=== PATIENT | female | born 1970 | race Caucasian/White ===

== ENCOUNTER 2019-11-27 08:13 | Emergency (ER) | payer OTHER, SELFPAY ==
[2019-11-27 08:19] VITALS: BP 138/89; PULSE 99; RESP 18; TEMP 36.8; O2SAT 98; BMI 25.4
[2019-11-27 08:27] VITALS: RESP 16
--- NOTE | 2019-11-27 08:29 | XR_ITS ---
WS: [id number] Right great toe, 3 views, 11/27/2019 Clinical Data: trauma big toe Comparison: None. Findings: There is a fracture of the proximal medial aspect of the base of the right first distal phalanx. The right first proximal phalanx is intact. The MP and IP joints are normal. XR/XR toe RT min 2V [id number] Impression: Fracture of proximal medial base of the right first distal phalanx of the toe.
--- NOTE | 2019-11-27 08:30 | W.ED.EXTPRO ---
HPI - Extremity Problem General: Chief complaint: Extremity Injury, Lower Stated complaint: right foot injury Time Seen by Provider: 11/27/19 08:19 History of Present Illness: HPI Narrative: Patient was at work this morning and turning over an 8 foot table she felt that was falling faster than she wanted to has been making lives noise and she took her foot to catch the table and table landed on her big toe and now she has swelling and tenderness to that toe on the right foot MD Complaint: joint swelling Onset (ago): minute(s) Pain Consistency: constant Location: right and toe (Big toe) Severity scale (1-10): 4 Quality: aching Radiation: none Associated symptoms: Deny chest pain, fever(s) or rash Review of Systems Const: Denies: fever(s), chills or body aches Eyes: Denies: change in vision or blurry vision ENMT: Denies: throat pain or nasal congestion Card: Denies: chest pain or dyspnea on exertion Resp: Denies: dyspnea, productive cough or non-productive cough GI: Denies: abdominal pain, nausea or vomiting Musc: Reports: extremity pain and joint pain Skin/Breast: Denies: rash Neuro: Denies: headache(s) Psych: Denies: anxiety or depression Alvin/Lymph: Denies: easy bruising Physical Exam Const: COMMON NORMALS: no acute distress, average body habitus and patient oriented x3 HENMT: COMMON NORMALS: normocephalic HEAD & SCALP: normal to inspection and normocephalic FACE & SINUS: normal facial exam Eye: COMMON NORMALS: conjunctivae normal GENERAL EYE: appearance normal, both eyes and all related structures CONJUNCTIVA: Yes conjunctivae normal Neck/C-Spine: COMMON NORMALS: no JVD Chest: COMMONS NORMALS: normal inspection of the chest Resp: COMMON NORMALS: normal respiratory effort and clear to auscultation bilaterally AUSCULTATION: clear to auscultation bilaterally Cardio: COMMON NORMALS: no JVD, regular rate and regular rhythm RATE: regular rate RHYTHM: regular rhythm GI: COMMON NORMALS: Normal to inspection, nondistended, normoactive bowel sounds present Extremity: COMMON NORMALS: full ROM RIGHT LOWER EXTREMITY: Yes foot & digits (Big toe is bruised swollen and tender with range of motion) Neuro: COMMON NORMALS: patient oriented x3 Course Vital Signs: Vital signs: Vital Signs Temperature 98.3 F 11/27/19 08:19 Pulse Rate 99 11/27/19 08:19 Respiratory Rate 16 11/27/19 08:27 Blood Pressure 138/89 11/27/19 08:19 Pulse Oximetry 98 11/27/19 08:19 Coding Level of Care Code ED National Sales Executive for Zaida Lin
[2019-11-27 09:22] VITALS: PULSE 86; RESP 15; O2SAT 94
== END 2019-11-27 09:23 | disposition home or self-care (01) ==
PROVIDERS: Emergency Provider Nurse Practitioner Family; PCP Electrodiagnostic Medicine
DX: S99.921A Unspecified injury of right foot, initial encounter (principal); W20.8XXA Other cause of strike by thrown, projected or falling object, initial encounter
CPT/HCPCS: 12345; 29515; 73660; 99281; 99283

== ENCOUNTER 2020-05-09 10:09 | Outpatient (CLI) | payer OTHER, SELFPAY ==
--- NOTE | 2020-05-09 10:17 | XRR_ITS ---
PROCEDURE INFORMATION: Exam: XR Right Shoulder Exam date and time: 05/09/2020 10:42 AM Age: 49 years old Clinical indication: Pain; Shoulder; Right; Additional info: Chronic R shoulder pain/chronic neck pain/osteoarthritis TECHNIQUE: Imaging protocol: XR Right shoulder. Views: 2 or more views. COMPARISON: No relevant prior studies available. FINDINGS: Bones/joints: Osteopenia. No acute bony injury or malalignment. No significant joint space narrowing. Soft tissues: Unremarkable soft tissues. XR/XR shoulder RT min 2V* [id number] IMPRESSION: No acute osseous pathology.
--- NOTE | 2020-05-09 10:17 | XRR_ITS ---
PROCEDURE INFORMATION: Exam: XR Cervical Spine, 2 or 3 Views Exam date and time: 05/09/2020 10:56 AM Age: 49 years old Clinical indication: Neck pain; Additional info: Chronic neck pain/osteoarthritis/chronic R shoulder pain TECHNIQUE: Imaging protocol: XR of the cervical spine, 2 or 3 views. COMPARISON: CT neck w con* [id number] 06/14/2017 8:29 AM FINDINGS: Bones/joints: Partial obscuration of the odontoid. No acute osseous pathology in the visualized cervical spine. Anatomic alignment. No significant disc space narrowing. Soft tissues: Unremarkable. XR/XR cervical spine 3V* [id number] IMPRESSION: No acute osseous pathology in the visualized cervical spine.
== END 2020-05-09 10:10 | disposition home or self-care (01) ==
LOC: RAD 10:13
PROVIDERS: PCP Electrodiagnostic Medicine; Visit Provider Electrodiagnostic Medicine
DX: M54.2 Cervicalgia (principal); M25.511 Pain in right shoulder; M54.12 Radiculopathy, cervical region; M25.50 Pain in unspecified joint; M19.90 Unspecified osteoarthritis, unspecified site
CPT/HCPCS: 72040; 73030

== ENCOUNTER 2020-05-24 15:27 | Outpatient (CLI) | payer OTHER, SELFPAY ==
--- NOTE | 2020-05-24 15:38 | MR_ITS ---
WS: [id number] MRI RIGHT SHOULDER NONCONTRAST TECHNIQUE: Sagittal T2, coronal T1, T2 and proton density imaging. Axial gradient PDE imaging. CLINICAL INFORMATION: RIGHT ROTATOR CUFF SYNDROME/CHRONIC RIGHT SHOULDER PAIN COMPARISON: None. FINDINGS: Mild degenerative arthritis AC joint. Mild downsloping acromion. Slight subacromial spurring. Normal supraspinatus and infraspinatus. Normal teres minor. Normal subscapularis. Normal biceps tendon in th e bicipital groove. Normal intra-articular biceps tendon. Normal glenoid labrum. Normal biceps labral anchor. Normal bone marrow signal. MR/MR shoulder RT wo con* [id number] IMPRESSION: 1. Mild degenerative arthritis AC joint with mild subacromial spurring. 2. Rotator cuff is normal. No full-thickness rotator cuff tears. 3. Normal biceps tendon in the bicipital groove. 4. No other significant findings.
== END 2020-05-24 15:28 | disposition home or self-care (01) ==
PROVIDERS: PCP Electrodiagnostic Medicine; Visit Provider Electrodiagnostic Medicine
DX: M75.101 Unspecified rotator cuff tear or rupture of right shoulder, not specified as traumatic (principal); M25.511 Pain in right shoulder; M19.011 Primary osteoarthritis, right shoulder
CPT/HCPCS: 73221

== ENCOUNTER 2022-03-10 14:46 | Outpatient (CLI) | payer OTHER, SELFPAY ==
--- NOTE | 2022-03-10 14:54 | XR_ITS ---
WS: [id number] DEXA (DUAL ENERGY X-RAY ABSORPTIOMETRY) Bone mineral density was performed using a [employer] machine. HISTORY: POSTMENOPAUSAL COMPARISON: None available. Lumbar spine BMD (L1-L4): 0.822 g/cm2 T score: -3.0 Z score: -2.2 Total hip BMD: Left: 0.674 g/cm2. T score: -2.6 Z score: -1.9 Right: 0.692 g/cm2. T score: -2.5 Z score: -1.8 10 year probability of a major osteoporotic fracture is 9.7%. XR/XR DEXA axial skeleton* [id number] IMPRESSION: OSTEOPOROSIS based upon the WHO classification for females.
== END 2022-03-10 14:47 | disposition home or self-care (01) ==
LOC: RAD 14:48
PROVIDERS: PCP Electrodiagnostic Medicine; Visit Provider Electrodiagnostic Medicine
DX: Z78.0 Asymptomatic menopausal state (principal); M81.0 Age-related osteoporosis without current pathological fracture
CPT/HCPCS: 77080

== ENCOUNTER 2022-04-10 19:30 | Emergency (ER) | payer OTHER, SELFPAY ==
[2022-04-10 19:35] VITALS: BP 127/76; PULSE 89; RESP 16; TEMP 36.5; O2SAT 97
--- NOTE | 2022-04-10 20:00 | W.ED.GENADLT ---
HPI - General Adult General: Chief complaint: Headache Stated complaint: Headache, N/V Time Seen by Provider: 04/10/22 19:58 History of Present Illness: Patient is a 51-year-old female who recently had COVID 11 days ago presents to the emergency room with 2 days of nausea and vomiting, headache and neck pain. Patient tells me 2 days ago she was at work when she suddenly experienced 1 episode of vomiting associated with mild chest blockage.' Denies have any chest pressure at this time. Patient reports that her esophagus filled like it was blocked. Since then, patient has had additional vomiting and and left-sided neck pain, headache and photophobia for the last 2 days. Patient said that her current headache feels different from her previous headache. Patient reports that the headache is gradual onset which began over the course of 30 minutes. Patient's usual headache is frontal and bilateral but reports now is left-sided. Patient has no family history of aneurysm. Patient denies any focal weakness in the arms or legs with facial droop, diplopia, expressive/receptive aphasia, gait instability or balance issues. In addition, patient denies any exertional chest pain, chest pressure, palpitation, abdominal pain, melena/hematochezia or complaints Onset:2 days ago Duration:2 days Location:home Severity:moderate Associated symptoms: Reports headache(s), nausea and vomiting; Deny chest pain, dyspnea, rash or palpitations Review of Systems Const: Denies: fever(s) or chills Eyes: Denies: change in vision ENMT: Denies: mouth pain Card: Denies: chest pain or palpitations Resp: Denies: dyspnea or non-productive cough GI: Reports: nausea and vomiting; Denies: abdominal pain or diarrhea : Denies: dysuria Musc: Denies: extremity pain Skin/Breast: Denies: rash or new lesions Neuro: Reports: headache(s); Denies: weakness in extremities Psych: Reports: other (Normal mood) Alvin/Lymph: Denies: easy bruising PFS ED PFSH: Medical History COVID Hypothyroidism Migraine Social History Smoking and tobacco status: never smoked Alcohol intake: never Substance/Drug Use: never Physical Exam Const: COMMON NORMALS: alert HENMT: COMMON NORMALS: atraumatic HEAD & SCALP: atraumatic MOUTH: moist mucous membranes not abnormal Eye: COMMON NORMALS: EOMs intact bilaterally and conjunctivae normal CONJUNCTIVA: Yes conjunctivae normal Neck/C-Spine: COMMON NORMALS: full ROM and supple OTHER: +no meningismus or nuchal rigidity Resp: COMMON NORMALS: normal respiratory effort and clear to auscultation bilaterally AUSCULTATION: clear to auscultation bilaterally Cardio: COMMON NORMALS: regular rate RATE: regular rate GI: COMMON NORMALS: Soft to palpation and non-tender PALPATION: Yes Soft to palpation OTHER: No focal TTP. NO guarding rebound, guarding, rigidity. No CVA tenderness to percussion. Neg Hanson/Neg McBurney's point tenderness, no suprabupic tenderness to palpation. Extremity: COMMON NORMALS: full ROM Neuro: SENSORIUM/ORIENTATION: Yes alert MOTOR EXAM: No Abnormal motor strength present and Other motor observations present (no focal motor deficits) OTHER: Mental status? Awake, alert, and oriented to self, year, month, location, and situation.? Following simple axial and appendicular commands.? Has appropriate fund of knowledge, comprehension, and insight.? Able to recall and understands pertinent aspects of medical history and current treatment status.? ? Language? Speech is fluent without word-finding difficulties.? Intact naming, expression, senior receptionist, and repetition.? ? Cranial nerves? 2,3,4,6: PERRL, EOMI with no nystagmus. 5: Intact sensation to light touch, symmetric? 7: Smile symmetrical, no facial droop.? 8: Hearing grossly intact.? 9,10: Normal palate movement.? 11: Normal strength in trapezius bilaterally 12: Tongue protrudes midline.? ? Motor examination? Normal bulk & tone. Strength as follows (R/L): Delts (5/5), Biceps (5/5), Triceps (5/5), Wrist ext (5/5), hip flexors (5/5), plantarflexors (5/5), dorsiflexors (5/5). ? Sensation? Light Touch: Grossly intact and equal in upper and lower extremities bilaterally? Romberg: Negative.? Distal joint position sense intact ? Coordination? Xcypon-gs-wlyi-finger movements intact without dysmetria or past-pointing.? Rapid fingertaps: preserved amplitude without decriment.? No tremor, myoclonus or truncal ataxia.? ? Gait/stance? Steady, normal narrow base gait with appropriate arm swing and turning.? Tandem gait without hesitation or loss of balance. Psych: COMMON NORMALS: speech normal SPEECH: Yes normal speech MOOD & AFFECT: Yes euthymic mood Course Vital Signs: Vital signs: Vital Signs Temperature 97.7 F 04/10/22 19:35 Pulse Rate 63 04/10/22 22:55 Respiratory Rate 16 04/10/22 22:55 Blood Pressure 107/71 04/10/22 22:55 Pulse Oximetry 96 04/10/22 22:55 Oxygen Delivery Me thod 04/10/22 22:55 MDM - General Adult Medical Decision Making Patient is a 51-year-old female who recently had COVID 11 days ago presents to the emergency room with 2 days of nausea and vomiting, headache and neck pain. Patient is hemodynamically stable. Neurological exam is intact. Patient has no meningismus sign. Rest of exam is unremarkable. Patient's lab work-up is unremarkable. Patient received Reglan, Benadryl, IVF, magnesium and Tylenol with improvement in symptoms. CT head is negative for any acute finding. I doubt that this is subarachnoid bleed given the fact the patient has not had worse headache of his life, headaches associate with other symptoms, has no family history of aneurysm. Patient reports that her headache significantly improved after medication. Patient is able to tolerate p.o. without any difficulty. Patient will need complaints of neck pain. Given concerns for possible chest pain with story of esophageal blockage with her picture associated nausea and vomiting, I ordered troponin and EKG. Troponin wnl. EKG is nonischemic. Her XR chest appears to be clear. At this time, do not suspect ACS or unstable angina. Rx: Magnesium oxide, Tylenol, Reglan as needed for headache Disposition: Discharge. Patient counseled regarding diagnostic impression, treatment plan. Patient given ED strict return precautions to return for continuation, worsening, or development of new symptoms. Instructed to f/u w/ PCP regarding symptoms today. Patient verbalized understanding. Lab Data : 04/10/22 21:08 04/10/22 21:[address] 04/10/22 20:41 IMPRESSION: No acute intracranial abnormality. Chest X-Ray 04/10/22 21:27 IMPRESSION: No acute findings. Laboratory Results WBC 4.8 10^3/uL (4.0-10.0) 04/10/22 21:08 RBC 4.25 10^6/uL (4.1-5.3) 04/10/22 21:08 Hgb 13.1 g/dL (11.5-15.3) 04/10/22 21:08 Hct 41.1 % (37.0-47.0) 04/10/22 21:08 MCV 96.7 fl (81-99) 04/10/22 21:08 MCH 30.8 pg (28.0-34.0) 04/10/22 21:08 MCHC 31.9 g/dL (30.0-36.0) 04/10/22 21:08 RDW 13.4 % (12.1-15.1) 04/10/22 21:08 Plt Count 308 10^3/cmm (130-400) 04/10/22 21:08 MPV 9.6 fL (7.4-10.4) 04/10/22 21:08 Neut % (Auto) 58.1 % 04/10/22 21:08 Lymph % (Auto) 25.6 % 04/10/22 21:08 [place] % (Auto) 11.5 % 04/10/22 21:08 Eos % (Auto) 4.0 % 04/10/22 21:08 Baso % (Auto) 0.6 % 04/10/22 21:08 Neut # (Auto) 2.79 10^3/uL (1.8-7.7) 04/10/22 21:08 Lymph # (Auto) 1.2 10^3/uL (0.8-4.8) 04/10/22 21:08 [place] # (Auto) 0.6 10^3/uL (0.2-0.9) 04/10/22 21:08 Eos # (Auto) 0.2 10^3/uL (0.0-0.8) 04/10/22 21:08 Baso # (Auto) 0.0 10^3/uL (0.0-0.1) 04/10/22 21:08 Nucleated RBC % (auto) 0 % 04/10/22 21:08 Nucleated RBCs # 0.0 /100WBC 04/10/22 21:08 Sodium 139 mmol/L (136-145) 04/10/22 21:08 Potassium 4.0 mmol/L (3.5-5.1) 04/10/22 21:08 Chloride 100 mmol/L (98-107) 04/10/22 21:08 Carbon Dioxide 30 mmol/L (22-29) H 04/10/22 21:08 Anion Gap 13.0 (5-19) 04/10/22 21:08 BUN 12 mg/dL (6-20) 04/10/22 21:08 Creatinine 0.8 mg/dL (0.5-0.9) 04/10/22 21:08 GFR Calculation 75.3 mL/min (90-130) L 04/10/22 21:08 Glucose 96 mg/dL (65-115) 04/10/22 21:08 Calculated Osmolality 288 mOsm/kg (285-295) 04/10/22 21:08 Calcium 9.6 mg/dL (8.5-10.5) 04/10/22 21:08 Troponin T Baseline 6 ng/L (0-10) 04/10/22 21:08 Imaging Data Other Imaging: Radiologist's impression: [address] [address] XRay Report Signed Patient: Ria Will Unit #: [id number] : 1970 Age/Sex: 51 / F ADM Date: 04/10/22 Loc: ER Room/Bed: Attending Dr: Ordering Provider/Ordering MD: Frandy Krishna MD Date of Service: 04/10/22 Procedure(s): XR chest 1V portable [id number] Accession Number(s): [id number] Report Number: [id number] PROCEDURE INFORMATION: Exam: XR Chest Exam date and time: 04/10/2022 9:39 PM Age: 51 years old Clinical indication: Pain; Chest pressure; Patient HX: C/O chest discomfort and SOB. Covid + almost two weeks ago. TECHNIQUE: Imaging protocol: Radiologic exam of the chest. Views: 1 view. COMPARISON: CR XR thoracic spine 3V* [id number] 12/30/2021 9:48 AM FINDINGS: Lungs: Unremarkable. No consolidation. Pleural spaces: Unremarkable. No pleural effusion. No pneumothorax. Heart/Mediastinum: Unremarkable. No cardiomegaly. Bones/joints: Unremarkable. XR/XR chest 1V portable [id number] IMPRESSION: No acute findings. ? Dictated By: Abner Carrillo DO Signed By: Abner Carrillo DO Signed Date/Time: 04/10/222150 DD/ [address] [address] [address] Scan Report Signed Patient: Ria Will Unit #: [id number] : 1970 Age/Sex: 51 / F ADM Date: 04/10/22 Loc: ER Room/Bed: Attending Dr: Ordering Provider/Ordering MD: Frandy Krishna MD Date of Service: 04/10/22 Procedure(s): CT head wo con* [id number] Accession Number(s): [id number] Report Number: [id number] PROCEDURE INFORMATION: Exam: CT Head Without Contrast Exam date and time: 04/10/2022 9:31 PM Age: 51 years old Clinical indication: Pain; Headache; Patient HX: SELF with n/v. History of migraines; Additional info: Different headache TECHNIQUE: Imaging protocol: Computed tomography of the head without contrast. Radiation optimization: All CT scans at this facility use at least one of these dose optimization techniques: automated exposure control; mA and/or kV adjustment per patient size (includes targeted exams where dose is matched to clinical indication); or iterative reconstruction. COMPARISON: CT neck w con* [id number] 06/14/2017 8:29 AM RADIATION DOSE METRICS: Total DLP (mGy-cm): 1061.58 FINDINGS: Brain: Normal. No hemorrhage. Unremarkable white matter. No mass effect. Cerebral ventricles: No ventriculomegaly. Paranasal sinuses: Visualized sinuses are unremarkable. No fluid levels. Mastoid air cells: Visualized mastoid air cells are well aerated. Bones/joints: Unremarkable. No acute fracture. Soft tissues: Unremarkable. CT/CT head wo con* [id number] IMPRESSION: No acute intracranial abnormality. ? Dictated By: Abner Carrillo DO Signed By: Abner Carrillo DO Signed Date/Time: 04/10/222145 DD/ 30 Discharge Plan Discharge Patient Disposition: Home Clinical Impression: Headache, Nausea & vomiting Condition: Stable Prescriptions: New acetaminophen 500 mg tablet 500 mg PO Q6H PRN (Reason: pain) 5 Days Qty: 20 0RF Reglan 5 mg tablet 5 mg PO BID PRN (Reason: nausea and vomiting) 5 Days Qty: 10 0RF magnesium oxide 400 mg magnesium capsule 400 mg PO DAILY PRN (Reason: headache) 10 Days Qty: 10 0RF No Action venlafaxine [Effexor XR] 75 mg capsule,extended release 24hr 75 mg PO DAILY levothyroxine 25 mcg capsule 25 mcg PO DAILY naproxen 500 mg tablet 500 mg PO BID PRN (Reason: headache) 5 Days Qty: 10 0RF Rx Instructions: emergency use only if migraine doesnot abort in 24 hours prednisone 20 mg tablet 20 mg PO DAILY 5 Days Qty: 5 0RF Rx Instructions: emergency use only if migraine doesnot abort in 24 hours Discharge Orders: Discharge ED (Routine); Ordered 04/10/22 Ordered By: Frandy Krishna Referrals: Logan Liz DO [Primary Care Provider] - Discharge Diet: Advance as tolerated Discharge Activity: Increase activity as tolerated Patient Instructions: Acute Headache (ED) Activity Restrictions/Additional Instructions: Please come back to the emergency room you have any fever chills, worsening headache, focal weakness, nausea/vomiting, inability to perform daily activity, or any new concerning complaints. Coding Level of Care Code ED Digester Cook for Chg Fwd Exam Comprehensive
--- NOTE | 2022-04-10 20:41 | CTR_ITS ---
PROCEDURE INFORMATION: Exam: CT Head Without Contrast Exam date and time: 04/10/2022 9:31 PM Age: 51 years old Clinical indication: Pain; Headache; Patient HX: SELF with n/v. History of migraines; Additional info: Different headache TECHNIQUE: Imaging protocol: Computed tomography of the head without contrast. Radiation optimization: All CT scans at this facility use at least one of these dose optimization techniques: automated exposure control; mA and/or kV adjustment per patient size (includes targeted exams where dose is matched to clinical indication); or iterative reconstruction. COMPARISON: CT neck w con* [id number] 06/14/2017 8:29 AM RADIATION DOSE METRICS: Total DLP (mGy-cm): 1061.58 FINDINGS: Brain: Normal. No hemorrhage. Unremarkable white matter. No mass effect. Cerebral ventricles: No ventriculomegaly. Paranasal sinuses: Visualized sinuses are unremarkable. No fluid levels. Mastoid air cells: Visualized mastoid air cells are well aerated. Bones/joints: Unremarkable. No acute fracture. Soft tissues: Unremarkable. CT/CT head wo con* [id number] IMPRESSION: No acute intracranial abnormality.
[2022-04-10] MEDS: acetaminophen 500 mg Tablet PO (21:15)
[2022-04-10] MEDS: metoclopramide 5 mg/mL SDV 2 mL 10 MG IVP (21:16)
[2022-04-10] MEDS: diphenhydrAMINE 50 mg/mL SDV 1mL IVP (21:17)
[2022-04-10 21:22] LABS: Basophils % 0.6 %; Eosinophils # 0.2 10^3/uL (0.0-0.8); Hematocrit 41.1 % (37.0-47.0); Hemoglobin 13.1 g/dL (11.5-15.3); Lymphocytes # 1.2 10^3/uL (0.8-4.8); Lymphocytes % 25.6 %; Mean Corpuscular HGB Conc 31.9 g/dL (30.0-36.0); Mean Corpuscular Hemoglobin 30.8 pg (28.0-34.0); Mean Corpuscular Volume 96.7 fl (81-99); Mean Platelet Volume 9.6 fL (7.4-10.4); Monocytes # 0.6 10^3/uL (0.2-0.9); Monocytes % 11.5 %; Neutrophils # 2.79 10^3/uL (1.8-7.7); Neutrophils % 58.1 %; Nucleated Red Blood Cells % 0 %; Platelet Count 308 10^3/cmm (130-400); Red Blood Count 4.25 10^6/uL (4.1-5.3); Red Cell Distribution Width 13.4 % (12.1-15.1); White Blood Count 4.8 10^3/uL (4.0-10.0)
--- NOTE | 2022-04-10 21:27 | XRR_ITS ---
PROCEDURE INFORMATION: Exam: XR Chest Exam date and time: 04/10/2022 9:39 PM Age: 51 years old Clinical indication: Pain; Chest pressure; Patient HX: C/O chest discomfort and SOB. Covid + almost two weeks ago. TECHNIQUE: Imaging protocol: Radiologic exam of the chest. Views: 1 view. COMPARISON: CR XR thoracic spine 3V* [id number] 12/30/2021 9:48 AM FINDINGS: Lungs: Unremarkable. No consolidation. Pleural spaces: Unremarkable. No pleural effusion. No pneumothorax. Heart/Mediastinum: Unremarkable. No cardiomegaly. Bones/joints: Unremarkable. XR/XR chest 1V portable [id number] IMPRESSION: No acute findings.
[2022-04-10 21:43] LABS: Blood Urea Nitrogen 12 mg/dL (6-20); Calcium 9.6 mg/dL (8.5-10.5); Carbon Dioxide 30 mmol/L (22-29); Chloride 100 mmol/L (98-107); Glomerular Filtration Rate 75.3 mL/min (90-130); Glucose 96 mg/dL (65-115); Osmolality Calculated 288 mOsm/kg (285-295); Sodium 139 mmol/L (136-145)
[2022-04-10 21:48] VITALS: BP 132/70; PULSE 66; RESP 14; O2SAT 95
[2022-04-10] MEDS: magnesium sulfate premix 2 GM/50 ML PIGGYBACK IV (21:49)
[2022-04-10 21:56] LABS: Troponin(5th) Baseline 6 ng/L (0-10)
--- NOTE | 2022-04-10 22:00 | ECG_ITS ---
[facility] Test Date: 2022-04-10 Pat Name: Ria Will Department: Room: Gender: Female Section Gang: : 1970 Requested By: Frandy Krishna Order Number: [id number] Sandra MD: Jag Sanchez M.D. Measurements Intervals [place] Rate: 70 P: 59 [place]: 175 QRS: 26 QRSD: 78 T: 70 QT: 383 QTc: 415 Interpretive Statements SINUS RHYTHM No previous ECG available for comparison Electronically Signed On 04-12-2022 22:04:09 CDT by Jag Sanchez M.D. [email or web address]
[2022-04-10 22:55] VITALS: BP 107/71; PULSE 63; RESP 16; O2SAT 96
[2022-04-10 23:52] VITALS: BP 141/77; PULSE 73; RESP 16; O2SAT 95
== END 2022-04-10 23:54 | disposition home or self-care (01) ==
PROVIDERS: Emergency Provider Emergency Medicine; PCP Electrodiagnostic Medicine
DX: R51.9 Headache, unspecified (principal); R11.2 Nausea with vomiting, unspecified; E03.9 Hypothyroidism, unspecified
CPT/HCPCS: 36415; 70450; 71045; 80048; 84484; 85025; 93005; 96365; 96375; 99285; J1200; J2765; J3475

== ENCOUNTER 2022-11-16 12:57 | Emergency (ER) | payer OTHER, SELFPAY ==
[2022-11-16 13:29] VITALS: BP 108/73; PULSE 88; RESP 16; TEMP 36.6; O2SAT 99; BMI 23.8
--- NOTE | 2022-11-16 13:45 | W.ED.FALL ---
HPI - Fall General: Chief Complaint: Fall Stated Complaint: broken nose from fall Time Seen by Provider: 11/16/22 13:34 Source: patient Mode of arrival: ambulatory Limitations: no limitations History of Present Illness: Patient is a 51-year-old female who presents to ED today for evaluation of nasal trauma. Patient states just prior to arrival she was walking outside when she believes her ankle rolled causing her to fall directly onto her face. She believes her nose is broken. She does complain of a headache. No neck or back pain. She denies any other injury sustained during the fall. MD complaint: fall Onset (ago): hour(s) Fall from: standing Fall witnessed: yes, by family Place fall occurred: work Loss of consciousness: None Prolonged down time: no Symptoms prior to fall: none Context: tripped/slipped Location of injury: face Associated symptoms-after fall: Reports no associated symptoms and headache(s); Denies chest pain, confusion, difficulty walking, lightheadedness or neck pain Review of Systems Eyes: Denies: change in vision, blurry vision, eye discomfort, floaters or seeing flashes ENMT: Reports: sinus pain (nose); Denies: throat pain, odynophagia, dental pain, ear discharge or nasal discharge Card: Denies: chest pain, palpitations or lightheadedness Resp: Denies: dyspnea GI: Denies: nausea or vomiting Musc: Denies: neck pain, back pain, extremity pain or joint pain Neuro: Reports: headache(s); Denies: numbness in extremities, weakness in extremities, sensory changes, lack of coordination, difficulty walking, frequent falls, dizziness, confusion or behavioral changes [facility] ED PFSH: Medical History COVID Hypothyroidism Migraine Psychiatric care Social History Smoking and tobacco status: never smoked Alcohol intake: never Substance/Drug Use: never Physical Exam Const: COMMON NORMALS: no acute distress, average body habitus, patient oriented x3, no limitations, healthy appearing, alert and well nourished GENERAL APPEARANCE: cooperative ORIENTATION/CONSCIOUSNESS: Yes awake, Yes oriented to person, Yes oriented to place and Yes oriented to time HENMT: COMMON NORMALS: normocephalic, atraumatic, external ears normal, EAC's normal and TM's normal bilaterally HEAD & SCALP: normal to inspection, normocephalic and atraumatic; no Simpson's sign, no hematoma and no raccoon eyes FACE & SINUS: edema (localized to nose); no sinus tenderness and no laceration NOSE: Normal septum present and Other nasal findings present (swelling/tenderness along nose); no Epistaxis present EXTERNAL EAR: Yes external ears normal EXTERNAL AUDITORY CANAL: EAC's normal TYMPANIC MEMBRANE: TM's normal bilaterally MOUTH: other (no intraoral injuries noted) Eye: COMMON NORMALS: Equal, round and reactive pupils present and EOMs intact bilaterally GENERAL EYE: appearance normal, both eyes and all related structures and normal light reflex PUPIL: Yes Equal, round and reactive pupils present DIRECT OPHTHALMOSCOPY: Yes normal light reflex Neck/C-Spine: COMMON NORMALS: full ROM GENERAL: Yes normal visual inspection CERVICAL SPINE: Yes cervical ROM normal, No pain with cervical ROM, No Cervical spine tenderness, No step off deformity and No Paracervical muscle tenderness Chest: COMMONS NORMALS: normal inspection of the chest and normal palpation of entire chest wall Resp: COMMON NORMALS: normal respiratory effort and clear to auscultation bilaterally AUSCULTATION: clear to auscultation bilaterally Cardio: COMMON NORMALS: regular rate and regular rhythm RATE: regular rate RHYTHM: regular rhythm Back/Pelvis: COMMON NORMALS: thoracic and lumbar spine normal to inspection, no thoracic nor lumbar tenderness and thoraco-lumbar ROM normal Extremity: COMMON NORMALS: normal to inspection and full ROM GENERAL: Yes normal exam except as noted Neuro: BELLO COMA SCALE: document GCS findings Bello coma scale eye opening: Spontaneous Britton coma scale verbal response: Orientated Britton coma scale motor response: Obey commands Bello coma scale total score: 15 COMMON NORMALS: patient oriented x3, CN's II-XII intact bilaterally, moves all extremities, no focal motor deficits, no sensory deficits noted and gait normal SENSORIUM/ORIENTATION: Yes alert, Yes oriented to person, Yes oriented to place and Yes oriented to time SPEECH: speech normal GAIT: Yes Normal gait present Skin: COMMON NORMALS: no rashes or lesions noted GENERAL SKIN EXAM: no rashes or lesions noted TRAUMA: no lacerations or abrasions Course Vital Signs: Vital signs: Vital Signs Temperature 97.8 F 11/16/22 13:29 Pulse Rate 88 11/16/22 13:29 Respiratory Rate 16 11/16/22 13:29 Blood Pressure 108/73 11/16/22 13:29 Pulse Oximetry 99 11/16/22 13:29 Oxygen Delivery Me thod Room Air 11/16/22 13:29 MDM - Fall Medical Decision Making CT head negative. CT facial showing distal nasal tip fx and left nasal bone fxs. Will have her follow up with ENT and Worker's Comp as directed. Lab Data Radiology Impressions Face CT 11/16/22 13:54 IMPRESSION: 1. Nondisplaced distal nasal tip fracture. Nondisplaced LEFT nasal bone fracture. Soft tissue edema overlying the nasal bones. 2. Paranasal sinuses are well aerated. Trace fluid RIGHT maxillary sinus. 3. No other visualized acute facial fractures. Head CT 11/16/22 13:54 IMPRESSION: 1. No evidence of intracranial hemorrhage or mass effect. 2. No acute intracranial findings. Discharge Plan Discharge Patient Disposition: Home Clinical Impression: Fall on same level from tripping Closed fracture nasal bone Qualifiers: Encounter type: initial encounter Qualified Code(s): S02.2XXA - Fracture of nasal bones, initial encounter for closed fracture Condition: Stable Prescriptions: New hydrocodone-acetaminophen 5-325 mg tablet 1 tab PO Q6H PRN (Reason: pain) Qty: 14 0RF No Action levothyroxine 25 mcg capsule 25 mcg PO DAILY naproxen 500 mg tablet 500 mg PO BID PRN (Reason: headache) 5 Days Qty: 10 0RF Rx Instructions: emergency use only if migraine doesnot abort in 24 hours alendronate 70 mg tablet 70 mg PO DAILY venlafaxine [Effexor XR] 150 mg capsule,extended release 24hr 300 mg PO DAILY Qty: 60 2RF trazodone 50 mg tablet 100 mg PO .HS PRN (Reason: insomnia) Qty: 60 2RF atorvastatin 20 mg tablet PO Discharge Orders: Discharge ED (Routine); Ordered 11/16/22 Ordered By: Enedelia Bonds Referrals: Logan Liz DO [Staff Physician] - ANNE LEIGH MD [Primary Care Provider] - Patient Instructions: Fractures - Nasal, Opioid Safety, Pain Management Activity Restrictions/Additional Instructions: As discussed please follow-up with Worker's Comp. as directed. Case management should contact you to set you up with your follow-up ENT appointment for further evaluation and treatment of your nasal fractures. 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
--- NOTE | 2022-11-16 13:54 | CT_ITS ---
WS: [id number] CT HEAD TECHNIQUE: Noncontrast CT of the head obtained from the skullbase to the vertex. CLINICAL INFORMATION: fall/trauma COMPARISON: CT April 10, 2022 DLP: 1713.[address] scans at [facility] use at least one of these dose optimization techniques: automated e xposure control; mA and/or kV adjustment per patient size (includes targeted exams where dose is matc hed to clinical indication); or iterative reconstruction. FINDINGS: No evidence of intracranial hemorrhage or mass effect. Ventricular system and basal cisterns are whitney nt. No extra-axial fluid collections. No evidence of mass or mass effect. Normal osuna-white different iation. Paranasal sinuses and mastoid air cells are well aerated. .Normal visualized soft tissues. CT/CT head wo con* [id number] IMPRESSION: 1. No evidence of intracranial hemorrhage or mass effect. 2. No acute intracranial findings.
--- NOTE | 2022-11-16 13:54 | CT_ITS ---
WS: [id number] CT FACIAL BONES TECHNIQUE: Noncontrast facial bones with coronal and sagittal reformatted images. CLINICAL INFORMATION: fall/trauma; nasal pain COMPARISON: None. DLP: 1713.[address] scans at [facility] use at least one of these dose optimization techniques: automated e xposure control; mA and/or kV adjustment per patient size (includes targeted exams where dose is matc hed to clinical indication); or iterative reconstruction. FINDINGS: Soft tissue edema overlying the nasal bones. Small nondisplaced distal nasal tip and LEFT nasal bone fractures. Minimal nasal septal deviation likely chronic. Mild mucosal thickening in the ethmoid air cells. Hypoplastic frontal sinuses. Maxillary sinuses are well aerated. Trace fluid RIGHT maxillary sinus. LEFT nasreen bullosa. Vascular calcification. Sphenoi d sinuses are patent. Normal posterior nasopharynx. Normal parapharyngeal fat. Orbits appear normal. Normal mandibular condyle. No evidence of mandibular fracture or dislocation. Normal pterygoid plates . Normal zygoma. CT/CT facial bones wo con* [id number] IMPRESSION: 1. Nondisplaced distal nasal tip fracture. Nondisplaced LEFT nasal bone fractu re. Soft tissue edema overlying the nasal bones. 2. Paranasal sinuses are well aerated. Trace fluid RIGHT maxillary sinus. 3. No other visualized acute facial fractures.
[2022-11-16 15:13] VITALS: RESP 14; O2SAT 98
[2022-11-16] MEDS: morphine 4 mg/mL SDV 1 mL IM (15:13)
--- NOTE | 2022-11-16 15:42 | DCPLANNER ---
Addendum entered by Carley Spear 11/25/22 15:12: Patient had a follow up appointment scheduled with ENT - patient did attend appointment Original Note: manager data center had message to schedule a follow up appointment for patient with ENT. manager data center sent patients information to the front office staff at ENT. Patients information will be printed and reviewed. Clinic will call patient with appointment information.
== END 2022-11-16 16:00 | disposition home or self-care (01) ==
PROVIDERS: Emergency Provider Physician Assistant; PCP Emergency Medicine
DX: S02.2XXA Fracture of nasal bones, initial encounter for closed fracture (principal); X50.1XXA Overexertion from prolonged static or awkward postures, initial encounter
CPT/HCPCS: 70450; 70486; 96372; 99284; J2270